=== PATIENT | female | born 1965 | race Caucasian/White ===

== ENCOUNTER 2018-03-15 10:11 | Observation (INO) | payer OTHER ==
[~2018-03-15] VITALS: Ht 170.2 cm; Wt 97.2 kg
[2018-03-15 11:13] LABS: BASOPHILS # (AUTO) 0.04 x10^3/uL (0-0.1); BASOPHILS % (AUTO) 1 % (0-1); EOSINOPHILS # (AUTO) 0.42 x10^3/uL (0-0.4); EOSINOPHILS % (AUTO) 6 % (1-7); LYMPHOCYTES % (AUTO) 35 % (22-44); MD NO; MEAN CORPUSCULAR HEMOGLOBIN 30.9 pg (27.0-34.8); MEAN CORPUSCULAR HGB CONC 32.7 g/dL (32.4-35.8); MEAN CORPUSCULAR VOLUME 94.4 fL (80-100); MEAN PLATELET VOLUME 7.7 fL (7.4-10.4); MONOCYTES # (AUTO) 0.39 x10^3/uL (0.2-0.8); MONOCYTES % (AUTO) 6 % (2-9); NEUTROPHILS # (AUTO) 3.71 x10^3/uL (1.8-6.8); NEUTROPHILS % (AUTO) 53 % (42-75); PLATELET COUNT 355 x10^3/uL (130-400); RED BLOOD COUNT 5.04 x10^6/uL (3.82-5.3); RED CELL DISTRIBUTION WIDTH 12.9 % (9.6-15.2)
[2018-03-15 11:26] LABS: ALBUMIN 3.8 g/dL (3.4-5.0); ANION GAP 6 mmol/L (5-15); CALCIUM 8.8 mg/dL (8.5-10.1); CHLORIDE 108 mmol/L (98-107); CREATININE 0.81 mg/dL (0.55-1.02)
[2018-03-15 11:30] LABS: TROPONIN I < 0.015 ng/mL (0.000-0.045)
[2018-03-15] MEDS ORDERED: NITROGLYCERIN SINGLE TAB 0.4 MG SL ONE (12:04)
[2018-03-15] MEDS: NITROGLYCERIN SINGLE TAB 0.4 MG SL PRN ×3 (12:06→12:16)
[2018-03-15] MEDS ORDERED: ASPI-496 PO (12:12)
[2018-03-15] MEDS ORDERED: ONDANSETRON ODT 4 MG PO PRN ×2 (12:30→13:00)
[2018-03-15] MEDS ORDERED: ASPIRIN 81 MG TABLET CHEW PO ONE (12:30)
[2018-03-15] MEDS ORDERED: MORPHINE SULFATE 4 MG/ML, 1ML IVPush PRN (12:30)
[2018-03-15] MEDS ORDERED: ASPIRIN 81 MG TABLET CHEW ONE (12:36)
[2018-03-15] MEDS ORDERED: ENOXAPARIN 40 MG/0.4 ML SQ SCH (13:00)
[2018-03-15] MEDS ORDERED: NITROGLYCERIN 0.4 MG BOTTLE (25 TABS) SL PRN (13:00)
[2018-03-15] MEDS ORDERED: LABETALOL 5MG/ML, 20ML IVPush PRN (13:00)
[2018-03-15] MEDS ORDERED: ACETAMINOPHEN 325 MG TABLET PO PRN (13:00)
[2018-03-15 13:36] LABS: FREE T4 (FREE THYROXINE) 0.94 ng/dL (0.76-1.46); THYROID STIMULATING HORMONE 2.58 mIU/L (0.358-3.740)
[2018-03-15] MEDS ORDERED: ENOXAPARIN 40 MG/0.4 ML ONE (13:46)
[2018-03-15] MEDS: SODIUM CHLORIDE 0.9% 1,000 ML IV SCH (15:02)
[2018-03-15 15:09] VITALS: BP 134/86
[2018-03-15 15:52] LABS: TROPONIN I < 0.015 ng/mL (0.000-0.045)
[2018-03-15 19:37] VITALS: BP 116/75
[2018-03-15] MEDS: ATORVASTATIN 40 MG TABLET PO SCH ×2 (21:09→21:28)
[2018-03-15 21:18] LABS: TROPONIN I < 0.015 ng/mL (0.000-0.045)
[2018-03-16 03:43] VITALS: BP 107/70
[2018-03-16 05:16] LABS: BASOPHILS # (AUTO) 0.04 x10^3/uL (0-0.1); BASOPHILS % (AUTO) 1 % (0-1); EOSINOPHILS # (AUTO) 0.48 x10^3/uL (0-0.4); EOSINOPHILS % (AUTO) 7 % (1-7); LYMPHOCYTES # (AUTO) 2.63 x10^3/uL (1-3.4); LYMPHOCYTES % (AUTO) 39 % (22-44); MD NO; MEAN CORPUSCULAR HEMOGLOBIN 31.9 pg (27.0-34.8); MEAN CORPUSCULAR HGB CONC 34.5 g/dL (32.4-35.8); MEAN CORPUSCULAR VOLUME 92.6 fL (80-100); MEAN PLATELET VOLUME 7.6 fL (7.4-10.4); MONOCYTES # (AUTO) 0.44 x10^3/uL (0.2-0.8); MONOCYTES % (AUTO) 7 % (2-9); NEUTROPHILS # (AUTO) 3.09 x10^3/uL (1.8-6.8); NEUTROPHILS % (AUTO) 46 % (42-75); PLATELET COUNT 324 x10^3/uL (130-400); RED BLOOD COUNT 4.69 x10^6/uL (3.82-5.3); RED CELL DISTRIBUTION WIDTH 12.8 % (9.6-15.2)
[2018-03-16 05:17] LABS: ALANINE AMINOTRANSFERASE 22 U/L (12-78); ALBUMIN 3.4 g/dL (3.4-5.0); ANION GAP 7 mmol/L (5-15); CALCIUM 8.5 mg/dL (8.5-10.1); CHLORIDE 108 mmol/L (98-107)
[2018-03-16 05:19] LABS: ALKALINE PHOSPHATASE 74 U/L (45-117); BILIRUBIN,TOTAL 0.4 mg/dL (0.2-1.0); CREATININE 0.83 mg/dL (0.55-1.02); TOTAL PROTEIN 6.8 g/dL (6.4-8.2)
[2018-03-16 07:46] VITALS: BP 118/82
[2018-03-16] MEDS: SODIUM CHLORIDE 0.9% 1,000 ML IV SCH (08:03)
[2018-03-16] MEDS ORDERED: ASPIRIN 81 MG TABLET CHEW PO SCH ×2 (09:00)
[2018-03-16 12:29] VITALS: BP 118/79
[2018-03-16] MEDS ORDERED: IBUP-1484 PO (13:57)
[2018-03-16] MEDS ORDERED: IBUPROFEN 200 MG TABLET PO PRN (14:00)
== END 2018-03-16 15:20 | disposition home or self-care (01) ==
LOC: ED 12:21 → EDIP 12:22 → INTOOBSV 12:22 → ED 12:57 → 5SO 14:53
PROVIDERS: ADMIT Internal Medicine; ATTEND Internal Medicine
DX: R07.89 Other chest pain (principal); N95.1 Menopausal and female climacteric states; E66.9 Obesity, unspecified; F17.220 Nicotine dependence, chewing tobacco, uncomplicated; Z88.8 Allergy status to other drugs, medicaments and biological substances; Z98.51 Tubal ligation status
CPT/HCPCS: 36415; 71046; 71275; 78452; 80048; 80053; 82040; 83880; 84439; 84443; 84484; 85025; 85379; 93005; 93017; 96372; 99285; A9502; C9898; G0378; J1650; J7030